=== PATIENT | female | born 1980 | race Caucasian/White ===

== ENCOUNTER 2024-10-06 09:19 | Emergency (ER) | payer BC ==
[~2024-10-06] VITALS: Ht 167.6 cm; Wt 56.0 kg
[2024-10-06 09:30] VITALS: BP 127/74; PULSE 65; RESP 16; TEMP 36.8; O2SAT 100
[2024-10-06 10:01] LABS: CHLORIDE 104 mEq/L (98-107); POTASSIUM 4.1 mEq/L (3.5-5.1); SODIUM 135 mEq/L (136-145)
[2024-10-06 10:02] LABS: CARBON DIOXIDE 25 mEq/L (21-32)
[2024-10-06 10:03] LABS: CALCIUM 9.3 mg/dL (8.7-10.4)
[2024-10-06 10:07] LABS: CREATININE 0.8 mg/dL (0.6-1.0); GLUCOSE 104 mg/dL (70-105); UREA NITROGEN BLOOD 32 mg/dL (9-23)
[2024-10-06 10:10] LABS: BASOPHILS % 0.3 % (0.0-2.0); EOSINOPHILS % 1.9 % (0.0-5.0); HEMATOCRIT. 42.4 % (36.0-48.0); HEMOGLOBIN. 13.6 g/dL (12.0-16.0); LYMPHOCYTES % 21.1 % (20.0-50.0); MEAN CORPUSCULAR HEMOGLOBIN 28.5 pg (28.0-32.0); MEAN CORPUSCULAR HGB CONC 32.1 g/dL (31.0-37.0); MEAN CORPUSCULAR VOLUME 88.7 fL (81.0-99.0); MEAN PLATELET VOLUME 7.8 fl (7.4-10.4); NEUTROPHILS % 70.7 % (40.0-76.0); PLATELET 274 x1000/uL (130-400); RED BLOOD CELL COUNT 4.78 mill/uL (4.2-5.4); RED CELL DISTRIBUTION WIDTH 12.1 % (11.6-14.6); WHITE BLOOD COUNT 13.8 x1000/uL (4.5-11.0)
== END 2024-10-06 10:28 | disposition home or self-care (01) ==
LOC: ER 09:57
DX: E87.8 Other disorders of electrolyte and fluid balance, not elsewhere classified (principal)
CPT/HCPCS: 36415; 80048; 85025; 99283

== ENCOUNTER → 2024-11-28 | Outpatient (CLI) | payer BC | END | disposition home or self-care (01) | LOC: MAMMO 07:23 | PROVIDERS: ATTEND Internal Medicine Nephrology | DX: Z12.31 Encounter for screening mammogram for malignant neoplasm of breast (principal); R92.323 Mammographic fibroglandular density, bilateral breasts; R92.1 Mammographic calcification found on diagnostic imaging of breast | CPT/HCPCS: 77063; 77067 ==